=== PATIENT | female | born 1985 ===

== ENCOUNTER 2020-10-10 15:15 | Inpatient (IN) | payer OTHER ==
[~2020-10-10] VITALS: Ht 162.6 cm; Wt 68.5 kg
[2020-10-20] MEDS ORDERED: PRENATAL TABLE1 EAC1 PO (06:56)
== END 2020-10-22 14:03 | disposition home or self-care (01) | DRG 807 ==
LOC: LDR 10-20 05:28 → OB/GYN 10-20 15:15 → SURG-SUITE 10-20 21:50
PROVIDERS: ADMIT Obstetrics & Gynecology Maternal & Fetal Medicine; ATTEND Obstetrics & Gynecology Maternal & Fetal Medicine
PROC: 10E0XZZ Delivery of Products of Conception, External Approach (ICD-10-PCS; principal; 2020-10-20)
PROC: 0KQM0ZZ Repair Perineum Muscle, Open Approach (ICD-10-PCS; 2020-10-20)
PROC: 3E033VJ Introduction of Other Hormone into Peripheral Vein, Percutaneous Approach (ICD-10-PCS; 2020-10-20)
PROC: 4A1HXFZ Monitoring of Products of Conception, Cardiac Rhythm, External Approach (ICD-10-PCS; 2020-10-20)
DX: O70.1 Second degree perineal laceration during delivery (principal); Z37.0 Single live birth; O34.13 Maternal care for benign tumor of corpus uteri, third trimester; D25.9 Leiomyoma of uterus, unspecified; O99.824 Streptococcus B carrier state complicating childbirth; Z3A.40 40 weeks gestation of pregnancy; Z20.822 Contact with and (suspected) exposure to COVID-19

== ENCOUNTER → 2020-10-17 | Outpatient (CLI) | payer OTHER | END | disposition home or self-care (01) | LOC: NST 17:42 | PROVIDERS: ATTEND Obstetrics & Gynecology | DX: Z34.83 Encounter for supervision of other normal pregnancy, third trimester (principal) ==

== ENCOUNTER 2022-06-27 08:59 | Outpatient (CLI) | payer OTHER ==
[~2022-06-27 08:59] MED LIST: PRENATAL TABLE1 EAC1 PO
== END 2022-06-27 09:53 | disposition home or self-care (01) ==
LOC: NST 08:59
PROVIDERS: ATTEND Obstetrics & Gynecology Maternal & Fetal Medicine
DX: Z34.83 Encounter for supervision of other normal pregnancy, third trimester (principal)

== ENCOUNTER 2022-06-27 14:15 | Inpatient (IN) | payer OTHER ==
[~2022-06-27] VITALS: Ht 162.6 cm; Wt 68.5 kg
== END 2022-07-09 10:28 | disposition home or self-care (01) | DRG 807 ==
LOC: OB/GYN 07-05 14:15 → LDR 07-07 06:41 → OB/GYN 07-07 08:44
PROVIDERS: ADMIT Obstetrics & Gynecology; ATTEND Obstetrics & Gynecology
PROC: 10E0XZZ Delivery of Products of Conception, External Approach (ICD-10-PCS; principal; 2022-07-07)
PROC: 4A1HXCZ Monitoring of Products of Conception, Cardiac Rate, External Approach (ICD-10-PCS; 2022-07-07)
DX: O80 Encounter for full-term uncomplicated delivery (principal); Z37.0 Single live birth; Z3A.40 40 weeks gestation of pregnancy; Z20.822 Contact with and (suspected) exposure to COVID-19